=== PATIENT | female | born 1955 | race Caucasian/White ===

== ENCOUNTER 2017-07-30 18:08 | Emergency (ER) | payer BC ==
[~2017-07-30] VITALS: Ht 162.6 cm; Wt 107.6 kg
[2017-07-30] MEDS ORDERED: SITA100T PO (18:53)
[2017-07-30] MEDS ORDERED: OMEP-110 PO (18:53)
[2017-07-30] MEDS ORDERED: MULT-717 PO (18:53)
[2017-07-30] MEDS ORDERED: GLYB5TAB3 PO (18:53)
[2017-07-30] MEDS ORDERED: VIT1CAPS42 PO (18:53)
[2017-07-30] MEDS ORDERED: ASPI-515 PO (18:53)
[2017-07-30] MEDS ORDERED: ATOR40TA PO (18:53)
[2017-07-30] MEDS ORDERED: LISI1TAB5 PO (18:53)
[2017-07-30] MEDS ORDERED: ACETAMINOPHEN 325 MG TABLET ONE (18:55)
[2017-07-30 19:24] LABS: RAPID INFLUENZA A POSITIVE (Negative); RAPID INFLUENZA B Negative (Negative)
[2017-07-30] MEDS ORDERED: PLEASE ENTER ALLERGIES MC SCH (19:30)
[2017-07-30] MEDS ORDERED: ACETAMINOPHEN 325 MG TABLET PO ONE (19:30)
[2017-07-30] MEDS ORDERED: ALBUTEROL/IPRATROPIUM 2.5MG/0.5MG, 3 ML ONE (20:15)
[2017-07-30] MEDS ORDERED: ALBUTEROL/IPRATROPIUM 2.5MG/0.5MG, 3 ML NPPB ONE (20:30)
[2017-07-30] MEDS ORDERED: BENZONATATE 100 MG CAPSULE PO ONE (20:30)
[2017-07-30 20:55] VITALS: BP 145/91
== END 2017-07-30 20:57 | disposition home or self-care (01) ==
LOC: ED 18:39
DX: J09.X2 Influenza due to identified novel influenza A virus with other respiratory manifestations (principal); J40 Bronchitis, not specified as acute or chronic; I10 Essential (primary) hypertension; E11.9 Type 2 diabetes mellitus without complications; E78.5 Hyperlipidemia, unspecified
CPT/HCPCS: 71045; 87400; 94640; 99285; J7620